=== PATIENT | female | born 1950 | race Caucasian/White ===

== ENCOUNTER 2024-04-23 04:53 | Emergency (ER) | payer MEDICARE, OTHER, SELFPAY ==
[2024-04-23] VITALS (12 sets, daily range): BP systolic 100–133; BP diastolic 72–98; BMI 30.1
--- NOTE | 2024-04-23 05:20 | ED.GENMED ---
History of Present Illness
<Patience Ramon DO, Resident - Last Filed: 04/23/24 05:33>
General
Chief Complaint: Musculo-Skeletal Complaint
Source: patient
Time Seen by Provider: 04/23/24 05:12
History of Present Illness
History of Present Illness:
Patient is a 73-year-old female presenting to the ED with sharp burning pain between her shoulder blades. This started around 12:30 AM this morning and she waited to see if the symptoms would go away before coming into the hospital. She did not
take any medications for the pain last dose of medication were her night meds before going to bed. She states that the pain does not radiate up or down and she has no headaches, no shortness of breath, no nausea vomiting or diarrhea, no radiating
numbness or tingling. She has no cardiac history.
If applicable-neuro sx onset
Date of onset of symptoms: 04/23/24
Past History
<Patience Ramon DO, Resident - Last Filed: 04/23/24 05:33>
Past History
ED Past Medical History: GERD, Hypothyroidism, Psychiatric (Anxiety and depression) and Other (Ulcers)
ED Past Surgical History: Orthopedic
Social History
Tobacco: Non-smoker
Alcohol: None
Drug: None
Personal:
Living: with family
Employment: Retired
Family History
Family History: Other (Noncontributory)
Review of Systems
<Patience Ramon DO, Resident - Last Filed: 04/23/24 05:33>
Review of Systems
Constitutional: Reports no symptoms
Respiratory: Reports no symptoms
Cardiac: Reports other (mild chest discomfort, sharp/burning pain between scapulae)
ABD/GI: Reports no symptoms
Musculoskeletal: Reports back pain (upper back between scapulae)
Skin: Reports no symptoms
Neurological: Reports no symptoms
Psychiatric: Reports no symptoms
Phy Exam
<Patience Ramon DO, Resident - Last Filed: 04/23/24 05:33>
General Physical Exam
General Presentation: well appearing and no apparent distress
General age: appears stated age
General Skin: warm and dry
General Habitus: normal
General Mental: alert
General Hydration: appears well hydrated
Cardiovascular Exam
Cardiovascular Exam: regular rate/rhythm, no edema, no gallop, no JVD and no murmur
Pulmonary Exam
Pulmonary Exam: lungs clear, no respiratory distress, no rales, chest non tender, no crackles, no rhonchi, no stridor, no wheezing and no cough
Musculoskeletal Exam
Musculoskeletal Exam: edema (+2)
Skin Exam
Skin Exam: normal color and warm/dry
Psychiatric Exam
Psychiatric Exam: normal mood/affect
Course
<Patience Ramon DO, Resident - Last Filed: 04/23/24 05:33>
Orders/Labs/Results
Orders:
Orders
04/23/24 04:54
Electrocardiogram (*1) Urgent
Reason for Study: Other
Other Reason for Exam: middle back pain
04/23/24 04:56
EKG- Treatment ONCE
04/23/24 05:24
Complete Blood Count/With Diff Urgent
Comprehensive Metabolic Panel Urgent
Fibrinogen Urgent
PTT Urgent
Prothrombin Time Urgent
Troponin I Urgent
04/23/24 05:47
CT Chest Pe Study Urgent
Comment:
Reason For Exam: chest pain with rad thru to back
04/23/24 06:08
EKG- Treatment ONCE
04/23/24 06:16
Sucralfate Suspension [Carafate Suspension] 1 gm PO NOW STA
04/23/24 08:08
Electrocardiogram (*1) Urgent
Reason for Study: Chest Pain
04/23/24 08:41
Troponin I Urgent
04/23/24 09:07
Oxycodone/Acetaminophen [Percocet 5/325] 1 tablet PO NOW STA
04/23/24 09:48
Mag Hydrox/Al Hydrox/Simeth [Maalox] 30 ml Phenobarb/Hyoscy/Atropine/Scop [] 10 ml Viscous Lidocaine 2% [Xylocaine Viscous Cup] 10 ml PO NOW
Abnormal Lab Results
04/23/24
05:24
RBC 4.03 L 10^6/uL
(4.20-5.40)
Hct 35.6 L %
(37.0-47.0)
Fibrinogen 559 H MG/DL
(199-459)
BUN 21 H mg/dl
(7-17)
04/23/24 05:24
04/23/24 05:24
Vital Signs
Initial and Last Documented VS:
Initial Vital Signs
Temp Pulse Resp BP Pulse Ox
97.8 F 68 21 133/77 98
04/23/24 05:11 04/23/24 05:11 04/23/24 05:11 04/23/24 05:11 04/23/24 05:11
Last Documented Vital Signs
Temp Pulse Resp BP Pulse Ox
97.8 F 80 15 114/79 93
04/23/24 05:11 04/23/24 08:30 04/23/24 07:45 04/23/24 08:30 04/23/24 08:30
<Jeevan Brothers, DO - Last Filed: 04/23/24 06:12>
Orders/Labs/Results
Orders:
Orders
04/23/24 04:54
Electrocardiogram (*1) Urgent
Reason for Study: Other
Other Reason for Exam: middle back pain
04/23/24 04:56
EKG- Treatment ONCE
04/23/24 05:24
Complete Blood Count/With Diff Urgent
Comprehensive Metabolic Panel Urgent
Fibrinogen Urgent
PTT Urgent
Prothrombin Time Urgent
Troponin I Urgent
04/23/24 05:47
CT Chest Pe Study Urgent
Comment:
Reason For Exam: chest pain with rad thru to back
04/23/24 06:08
EKG- Treatment ONCE
04/23/24 06:16
Sucralfate Suspension [Carafate Suspension] 1 gm PO NOW STA
04/23/24 08:08
Electrocardiogram (*1) Urgent
Reason for Study: Chest Pain
04/23/24 08:41
Troponin I Urgent
04/23/24 09:07
Oxycodone/Acetaminophen [Percocet 5/325] 1 tablet PO NOW STA
04/23/24 09:48
Mag Hydrox/Al Hydrox/Simeth [Maalox] 30 ml Phenobarb/Hyoscy/Atropine/Scop [] 10 ml Viscous Lidocaine 2% [Xylocaine Viscous Cup] 10 ml PO NOW
Abnormal Lab Results
04/23/24
05:24
RBC 4.03 L 10^6/uL
(4.20-5.40)
Hct 35.6 L %
(37.0-47.0)
Fibrinogen 559 H MG/DL
(199-459)
BUN 21 H mg/dl
(7-17)
04/23/24 05:24
04/23/24 05:24
Vital Signs
Initial and Last Documented VS:
Initial Vital Signs
Temp Pulse Resp BP Pulse Ox
97.8 F 68 21 133/77 98
04/23/24 05:11 04/23/24 05:11 04/23/24 05:11 04/23/24 05:11 04/23/24 05:11
Last Documented Vital Signs
Temp Pulse Resp BP Pulse Ox
97.8 F 80 15 114/79 93
04/23/24 05:11 04/23/24 08:30 04/23/24 07:45 04/23/24 08:30 04/23/24 08:30
<Marcel Taveras, DO - Last Filed: 04/23/24 10:03>
Orders/Labs/Results
Orders:
Orders
04/23/24 04:54
Electrocardiogram (*1) Urgent
Reason for Study: Other
Other Reason for Exam: middle back pain
04/23/24 04:56
EKG- Treatment ONCE
04/23/24 05:24
Complete Blood Count/With Diff Urgent
Comprehensive Metabolic Panel Urgent
Fibrinogen Urgent
PTT Urgent
Prothrombin Time Urgent
Troponin I Urgent
04/23/24 05:47
CT Chest Pe Study Urgent
Comment:
Reason For Exam: chest pain with rad thru to back
04/23/24 06:08
EKG- Treatment ONCE
04/23/24 06:16
Sucralfate Suspension [Carafate Suspension] 1 gm PO NOW STA
04/23/24 08:08
Electrocardiogram (*1) Urgent
Reason for Study: Chest Pain
04/23/24 08:41
Troponin I Urgent
04/23/24 09:07
Oxycodone/Acetaminophen [Percocet 5/325] 1 tablet PO NOW STA
04/23/24 09:48
Mag Hydrox/Al Hydrox/Simeth [Maalox] 30 ml Phenobarb/Hyoscy/Atropine/Scop [] 10 ml Viscous Lidocaine 2% [Xylocaine Viscous Cup] 10 ml PO NOW
Abnormal Lab Results
04/23/24
05:24
RBC 4.03 L 10^6/uL
(4.20-5.40)
Hct 35.6 L %
(37.0-47.0)
Fibrinogen 559 H MG/DL
(199-459)
BUN 21 H mg/dl
(7-17)
04/23/24 05:24
04/23/24 05:24
Vital Signs
Initial and Last Documented VS:
Initial Vital Signs
Temp Pulse Resp BP Pulse Ox
97.8 F 68 21 133/77 98
04/23/24 05:11 04/23/24 05:11 04/23/24 05:11 04/23/24 05:11 04/23/24 05:11
Last Documented Vital Signs
Temp Pulse Resp BP Pulse Ox
97.8 F 80 15 114/79 93
04/23/24 05:11 04/23/24 08:30 04/23/24 07:45 04/23/24 08:30 04/23/24 08:30
<Patience Ramon DO, Resident - Last Filed: 04/23/24 05:33>
MDM/Problems Addressed
Differential Diagnosis Includes:
arrhythmia, aortic dissection
MDM/Problems Addressed:
Patient is a 73-year-old female presenting to the ED with sharp burning pain between her scapula since 1230 this morning. She is stable.
Chronic conditions affecting care:
NA
Acute Exacerbation and/or Progression of Chronic Illness:
NA
<Patience Ramon DO, Resident - Last Filed: 04/23/24 05:33>
*Pulse Oximetry
Patient hypoxic: no
*EKG
Interpreted by ED Provider?: Yes
EKG Intrepretation Date: 04/23/24
Interpretation: abnormal
Comparison EKG: changes noted
Heart Rate: 72
Rate: normal
Rhythm: sinus
[place]: normal axis
Interval: normal interval
QRS Pattern: right bundle branch block
*Critical Care Note
Total Time (30-74mins, 75-104mins- exclusive of procedures): Not Applicable
<Marcel Taveras DO - Last Filed: 04/23/24 10:03>
*Radiology
Radiology exam reviewed: radiology read reviewed
<Marcel Taveras DO - Last Filed: 04/23/24 10:03>
Update Note
Update Note:
Update, signout pending second troponin and reevaluation second troponin noted CAT scan report noted patient has a history of reflux, complaining some burning between her shoulder blades, allergies noted will try Percocet and GI cocktail
ED Attending Note
<Patience Ramon DO, Resident - Last Filed: 04/23/24 05:33>
-
Portions of this chart may have been created with voice recognition software.� Occasional wrong word or��sound alike� substitutions may have occurred due to the inherent limitations of voice recognition software.
<Jeevan Brothers DO - Last Filed: 04/23/24 06:12>
ED Attending Note
Patient seen and examined by attending physician: Yes
I performed the substantive portion of visit, reviewed & personally made and approve the management plan that is documented in note by myself or REID.: Yes
ED Attending Note:
Pleasant 73-year-old female presents with substernal chest pain that radiates through to her back. She states that the chest pain is mild but does report that the back pain is intense. It comes and cycles. She states that it is sharp in nature.
Patient states that she has not felt this before. This pain awakened her from sleep. Patient denies fever, chills, nausea or vomiting.
Vital signs are stable. Patient not hypoxic
Nursing note reviewed. I agree with nursing documentation up to this point in time.
Home Meds and allergies reviewed.
NUMBER AND COMPLEXITY OF PROBLEMS ADDRESSED AT THE ENCOUNTER
� Chronic conditions affecting care: GERD, chest pain, hypotension, stomach ulcers GERD
� Acute Exacerbation and/or Progression of Chronic Illness:
� Differential Diagnosis includes: Exacerbation of stomach ulcers, thoracic aortic dissection, pulmonary emboli
AMOUNT AND/OR COMPLEXITY OF DATA TO BE REVIEWED AND ANALYZED
I performed an independent evaluation of the following and my interpretation is:
EKG: EKG shows normal sinus rhythm rate of 72 with normal intervals, indeterminate axis. No evidence of acute ischemia present.
CT:
X-rays:
Ultrasound:
Laboratory Studies: 6.4 white blood cell count
Other:
Review of other/old records:
Clinical information was obtained by an independent historian:
Prescriptions/Medications Considered but not given:
Further testing considered but not performed:
RISK OF COMPLICATIONS AND/OR MORBIDITY OR MORTALITY OF PATIENT MANAGEMENT
Social determinants of health affecting care: Good Social Support
Discussion with other providers:
Escalation of care including admission/observation vs risk of discharge considered:
CRITICAL CARE NOTE:30
Critical care statement: A total of 30 minutes of critical care time was provided for this patient. This time is separate from time utilized to perform the aforementioned documented procedures. Aggregate critical care time includes only time
during which I was engaged in work directly related to the patient's care, as described above, whether at the bedside or elsewhere in the Emergency Department.
Total Time (exclusive of procedures):
Update:
Discharge Plan
Departure
Prescriptions:
No Action
epinephrine [EpiPen] 0.3 MG/0.3/SYRINGE auto-injector
0.3 mg IM .STAT PRN (Reason: difficulty Breathing) Qty: 1 0RF
levothyroxine 137 mcg Tablet
137 mcg PO DAILY
Benefiber (wheat dextrin) 1 gram Tablet
1 g PO DAILY
famotidine 40 mg Tablet
40 mg PO HS
mirtazapine 15 mg Tablet
15 mg PO HS
Orencia 50 mg/0.4 mL Syringe
See Rx Instructions .ROUTE .COMPLEX
Rx Instructions:
as ordered by Rheum
tapinarof 1 % Cream
1 applic TOPICAL DAILY
Referrals:
Kanchan Alexander DO [Family Provider] -
Interventions
Interventions:
*Risk Screen - Suicide Last Done: 04/23/24 04:57
*General Assessment Last Done: 04/23/24 04:57
*Neglect/Abuse Screening Last Done: 04/23/24 04:57
ED- Fall Risk Assessment Last Done: 04/23/24 05:13
*ED COVID-19 Vaccine History Last Done: 04/23/24 05:13
ED-Musculoskeletal Assessment Last Done: 04/23/24 05:13
Discharge Date and Time
Print Language: NAMIBIAN
[2024-04-23 05:34] LABS: % Basophils 0.5 % (0-2); % Eosinophils 4.1 % (0-6); % Immature Granulocytes 0.3 % (0-0.5); % Lymphocytes 28.8 % (20.5-51.1); % Monocytes 7.7 % (1.7-9.3); % Neutrophils 58.6 % (42.2-75.2); Absolute Eosinophils 0.3 10^3/uL (0-0.7); Absolute Lymphocytes 1.8 10^3/uL (1.2-3.4); Absolute Monocytes 0.5 10^3/uL (0.1-0.6); Absolute Neutrophils 3.7 10^3/uL (1.4-6.5); Hematocrit 35.6 % (37.0-47.0); Hemoglobin 12.2 g/dL (12.0-16.0); Mean Corp Hgb Conc. 34.3 g/dL (33.0-37.0); Mean Corpuscular Hgb 30.3 pg (27.0-31.0); Mean Corpuscular Volume 88.3 fL (81.0-99.0); Mean Platelet Volume 9.3 fL (7.4-10.4); Nucleated Red Blood Cells % 0 %; Platelet Count 179 10^3/uL (130-400); Red Blood Cell Count 4.03 10^6/uL (4.20-5.40); Red Cell Dist. Width 13.2 % (11.5-14.5); White Blood Cell Count 6.4 10^3/uL (4.8-10.8)
[2024-04-23 05:54] LABS: INR 1.02; PT 13.2 Sec (11.4-14.6)
[2024-04-23 05:55] LABS: APTT 30.6 Sec (23.4-35.0); Fibrinogen 559 MG/DL (199-459)
[2024-04-23 05:56] LABS: ALT (SGPT) 24 U/L (0-35); AST (SGOT) 28 U/L (14-36); Albumin 4.2 g/dl (3.5-5.0); Alkaline Phosphatase 109 U/L (38-126); Blood Urea Nitrogen 21 mg/dl (7-17); Calcium 9.7 mg/dl (8.4-10.2); Carbon Dioxide 24 mmol/L (22-30); Chloride 107 mmol/L (98-107); Estimated Creatinine Clearance 60 ml/min; Glucose 93 mg/dl (70-99); Potassium 4.2 mmol/L (3.5-5.1); Sodium 141 mmol/L (135-145); Total Bilirubin 0.4 mg/dl (0.2-1.3); Total Protein 6.8 g/dl (6.3-8.2); eGFR > 60.00
[2024-04-23 06:07] LABS: Troponin I < 0.012 ng/ml
[2024-04-23] MEDS: CARAFATE SUSPENSION 1 GM PO (07:02)
[2024-04-23] MEDS: PERCOCET 5/325 1 TABLET PO (09:13)
[2024-04-23 09:29] LABS: Troponin I < 0.012 ng/ml
[2024-04-23] MEDS: MAALOX 50 PO (10:14)
--- NOTE | 2024-04-23 10:49 | EDRN ---
Reviewed discharge instructions with patient. Verbalized understanding.
== END 2024-04-23 10:50 | disposition home or self-care (01) ==
LOC: EMR 04:53
PROVIDERS: Student in an Organized Health Care Education/Training Program; EMERGENCY PHYSICIAN Emergency Medicine; FAMILY PHYSICIAN Internal Medicine
DX: R07.89 Other chest pain (principal); M54.6 Pain in thoracic spine; I45.10 Unspecified right bundle-branch block; K21.9 Gastro-esophageal reflux disease without esophagitis; E03.9 Hypothyroidism, unspecified; F32.A Depression, unspecified; F41.9 Anxiety disorder, unspecified; Z87.11 Personal history of peptic ulcer disease; Z88.6 Allergy status to analgesic agent; Z88.1 Allergy status to other antibiotic agents; Z91.030 Bee allergy status; Z88.5 Allergy status to narcotic agent; Z91.018 Allergy to other foods; Z88.0 Allergy status to penicillin; Z88.7 Allergy status to serum and vaccine
CPT/HCPCS: 99291; 71275; 80053; 84484; 85025; 85384; 85610; 85730; 93005; Q9967

== ENCOUNTER → 2024-06-11 22:00 | Outpatient (REF) | payer MEDICARE, OTHER, SELFPAY | LOC: DHSLP 22:00 | PROVIDERS: ATTENDING PHYSICIAN Internal Medicine; FAMILY PHYSICIAN Internal Medicine | DX: G47.33 Obstructive sleep apnea (adult) (pediatric) (principal) | CPT/HCPCS: 95800 ==

== ENCOUNTER → 2024-07-03 09:11 | Outpatient (REF) | payer MEDICARE, OTHER, SELFPAY | LOC: HWWDC 09:11 | PROVIDERS: ATTENDING PHYSICIAN Obstetrics & Gynecology Gynecology; FAMILY PHYSICIAN Internal Medicine | DX: Z12.31 Encounter for screening mammogram for malignant neoplasm of breast (principal) | CPT/HCPCS: 36415; 77063; 77067 ==

== ENCOUNTER → 2025-01-29 08:46 | Outpatient (REF) | payer MEDICARE, OTHER, SELFPAY | LOC: HWRAD 08:46 | PROVIDERS: ATTENDING PHYSICIAN Internal Medicine Rheumatology; FAMILY PHYSICIAN Internal Medicine | DX: M81.0 Age-related osteoporosis without current pathological fracture (principal) | CPT/HCPCS: 77080 ==

== ENCOUNTER → 2025-08-07 13:59 | Outpatient (REF) | payer MEDICARE, OTHER, SELFPAY | LOC: HWWDC 13:59 | PROVIDERS: ATTENDING PHYSICIAN Nurse Practitioner Obstetrics & Gynecology; FAMILY PHYSICIAN Internal Medicine | DX: Z12.31 Encounter for screening mammogram for malignant neoplasm of breast (principal) | CPT/HCPCS: 77063; 77067 ==